=== PATIENT | female | born 1935 ===

== ENCOUNTER → 2018-12-17 | Outpatient (CLI) | payer OTHER ==
[~2018-12-17] MED LIST: ASPI325 PO; GUAI600T33; LEVFLO500 PO; LISI5; NITR.4SL SL; POTCHL20ER PO; [UNRECOGNIZED DRUG - OTHER]
[2018-12-17 18:26] LABS: Bilirubin, Urine Neg (Neg); Blood, Urine Neg (Neg); Glucose Qualitative, Urine Neg (Neg); Ketones, Urine Neg (Neg); Leukocyte Esterase, Urine 1+ (Neg); Nitrite, Urine Neg (Neg); Protein, Urine Neg (Neg); Specific Gravity, Urine 1.025 (1.003-1.022); Urobilinogen, Urine 1+ (Normal)
[2018-12-17 19:38] LABS: Appearance, Urine Cloudy (Clear); Color, Urine Yellow (P-Yellow)
[2018-12-17 19:44] LABS: Amorphous Heavy ({null, 0-Heavy}); Bacteria Rare /hpf; Red Blood Cells, Urine 0-2 /hpf (0-2); Squamous Epithelial Cells Few /hpf (Few); White Blood Cells, Urine 0-2 /hpf (0-5)
== END | disposition home or self-care (01) ==
LOC: LAB SHORT 12:05 → LAB 12:05 → LAB FUT 10-30 10:55
PROVIDERS: Hospitalist
DX: R30.0 Dysuria (principal)
CPT/HCPCS: 81001; 87086

== ENCOUNTER 2020-07-19 01:02 | Day surgery (SDC) | payer OTHER, SELFPAY ==
--- NOTE | 2020-07-19 13:33 | NUR ---
CRYSTAL ALL LABS FROM THE IV SITE. PT TOLERATED THIS WELL.
== END 2020-07-19 12:25 | disposition home or self-care (01) ==
LOC: ATC 01:02
DX: E27.40 Unspecified adrenocortical insufficiency (principal); I10 Essential (primary) hypertension; J45.909 Unspecified asthma, uncomplicated
CPT/HCPCS: 36415; 80400; 82533; 96372; J0834

== ENCOUNTER 2020-08-05 00:02 | Emergency (ER) | payer OTHER, SELFPAY ==
[~2020-08-05] VITALS: Ht 152.4 cm; Wt 77.1 kg
== END 2020-08-05 02:22 | disposition home or self-care (01) ==
LOC: ER 00:02
DX: T78.1XXA Other adverse food reactions, not elsewhere classified, initial encounter (principal); Z91.041 Radiographic dye allergy status; Z88.8 Allergy status to other drugs, medicaments and biological substances
CPT/HCPCS: 99282; A9270; J1100